=== PATIENT | female | born 1990 | race African-American/Black ===

== ENCOUNTER 2023-07-17 16:30 | Emergency (ER) | payer OTHER ==
[~2023-07-17] VITALS: Ht 167.6 cm; Wt 70.3 kg
[2023-07-17 18:15] VITALS: TEMP 97.5
[2023-07-17] MEDS ORDERED: GABAPENTIN 100 MG CAPSULE PO ONE (19:00)
[2023-07-17] MEDS ORDERED: GABAPENTIN 300 MG CAPSULE ONE (19:07)
[2023-07-17 19:41] LABS: BASOPHILS % (AUTO) 0.7 % (0.0-2.0); EOSINOPHILS # (AUTO) 0.2 K/uL (0.0-0.7); EOSINOPHILS % (AUTO) 2.3 % (0.0-6.0); HEMATOCRIT 43 % (33-45); LYMPHOCYTES % (AUTO) 39.9 % (20.0-44.0); MEAN CORPUSCULAR HEMOGLOBIN 30 PG (26.0-33.0); MEAN CORPUSCULAR HGB CONC 32 g/dl (31.0-36.0); MEAN CORPUSCULAR VOLUME 93 fL (82-100); MONOCYTES # (AUTO) 0.5 K/uL (0.1-1.30); MONOCYTES % (AUTO) 7.3 % (2.0-12.0); NEUTROPHILS # (AUTO) 3.7 K/uL (1.8-8.9); NEUTROPHILS % (AUTO) 49.8 % (43.0-81.0); PLATELET COUNT (AUTO) 417 K/uL (150-450); RED BLOOD CELL COUNT(AUTO) 4.68 MIL/uL (4.0-5.2); RED CELL DISTRIBUTION WIDTH 13.2 % (11.5-15.0); WHITE BLOOD COUNT (AUTO) 7.4 K/uL (4.3-11.0)
[2023-07-17 19:53] LABS: CALCIUM, SERUM 10.1 mg/dL (8.5-10.1); CREATININE 0.6 mg/dL (0.6-1.3); POTASSIUM 3.7 mmol/L (3.5-5.1)
[2023-07-17] MEDS ORDERED: GABA-532 PO (20:06)
[2023-07-17 21:22] VITALS: BP 147/88; O2SAT 99
== END 2023-07-17 21:23 | disposition home or self-care (01) ==
LOC: ER 17:00
DX: M79.2 Neuralgia and neuritis, unspecified (principal); E11.65 Type 2 diabetes mellitus with hyperglycemia; E11.9 Type 2 diabetes mellitus without complications
CPT/HCPCS: 36415; 80048-TC; 85025-TC; J7040